=== PATIENT | male | born 1980 | race Caucasian/White ===

== ENCOUNTER → 2020-04-08 | Outpatient (CLI) | payer BC ==
--- NOTE | 2020-04-08 09:47 | Diagnostic Imaging Report ---
INDICATION: Right shoulder pain. Time of exam 9:02 AM 3 views of the right shoulder were obtained. The glenohumeral and acromioclavicular alignment are normal. Acromial humeral space is normal. No fracture or dislocation is identified. IMPRESSION: No acute bony abnormality is detected. Dictated by: Dictated on workstation # [id number]
== END ==
LOC: RAD FS 08:56
PROVIDERS: ATTEND Family Medicine
DX: M25.511 Pain in right shoulder (principal)
CPT/HCPCS: 73030

== ENCOUNTER → 2020-11-03 | Outpatient (CLI) | payer SELFPAY ==
--- NOTE | 2020-11-03 10:37 | Diagnostic Imaging Report ---
INDICATION: Family history of heart disease and hypertension. CT cardiac calcium scoring study performed with images of the cardiac silhouette without contrast with calculation of calcium scoring. Dose reduction protocol was used. Raw data images demonstrate the thoracic aorta to be normal in caliber. There are calcified nodes in the left hilum and in the subcarinal region compatible with old granulomatous disease. There is no pleural or pericardial fluid. The visualized portions of the lung carter show no suspicious findings. The entirety of the lung carter are not included on this study. There is no significant coronary calcification. Calcium score was 0. IMPRESSION: CTA coronary calcium scoring study performed and demonstrates no significant coronary calcification. Calcium score is 0. There are old granulomatous changes as above. Dictated by: Dictated on workstation # [id number]
== END ==
LOC: RAD FS 09:22
PROVIDERS: ATTEND Family Medicine
DX: Z82.49 Family history of ischemic heart disease and other diseases of the circulatory system (principal)
CPT/HCPCS: 75571